=== PATIENT | male | born 1990 | race Hispanic/Latino ===

== ENCOUNTER 2021-07-12 09:49 | Emergency (ER) | payer SELFPAY ==
[~2021-07-12] VITALS: Ht 162.6 cm; Wt 86.4 kg
[2021-07-12 09:53] VITALS: BP 136/82
--- NOTE | 2021-07-12 10:31 | REP ---
INDICATION: fell 4 ft onto ribs COMPARISON: None. TECHNIQUE: Frontal view of the chest with multiple views of the left hemithorax. FINDINGS: Frontal view of the chest demonstrates no acute cardiopulmonary process, contusion, effusion, or pneumothorax. Multiple views of the left hemithorax demonstrates no acute rib fracture/injury or pathology. IMPRESSION: Normal rib series. <Electronically signed by Navjot Rob > 07/12/21 1026
[2021-07-12] MEDS ORDERED: IBUP-1022 PO (11:59)
[2021-07-12] MEDS ORDERED: IBUPROFEN 600MG TAB PO ONE (12:00)
== END 2021-07-12 12:48 | disposition home or self-care (01) ==
LOC: M ED 09:49
DX: R07.89 Other chest pain (principal); W19.XXXA Unspecified fall, initial encounter; Y92.9 Unspecified place or not applicable; Y93.9 Activity, unspecified; Y99.9 Unspecified external cause status